=== PATIENT | female | born 2000 | race Caucasian/White ===

== ENCOUNTER 2024-10-24 00:07 | Inpatient (IN) | payer BC ==
[~2024-10-24] VITALS: Ht 167.6 cm; Wt 97.5 kg
[~2024-10-24 00:07] MED LIST: CALCIUM CARBONATE 500 MG CHEW PO PRN; LACTATED RINGER'S 1,000 ML IV SCH; MAGNESIUM HYDROXIDE/AL HYDROX 30 ML CUP PO PRN; miSOPROStoL 25 MCG TAB PV SCH
[2024-10-24 01:07] VITALS: BP 124/77
[2024-10-24 01:08] LABS: HEMATOCRIT 32.8 % (35.0-50.0); HEMOGLOBIN 11.3 g/dL (12.0-18.0); MCH 29.2 (27-36); MCHC 34.3 g/dl (30-36); MCV 85.2 fl (81-99); RBC 3.85 M/ul (4.3-5.7); RDW 13.8 (10.5-15.0)
[2024-10-24 01:17] LABS: AMPHETAMINES, URINE NEGATIVE (NEGATIVE); BARBITURATES, URINE NEGATIVE (NEGATIVE); BENZODIAZEPINE, URINE NEGATIVE (NEGATIVE); BUPRENORPHINE, URINE NEGATIVE (NEGATIVE); CANNABINOID, URINE NEGATIVE (NEGATIVE); COCAINE, URINE NEGATIVE (NEGATIVE); ECSTASY, URINE NEGATIVE (NEGATIVE); FENTANYL, URINE NEGATIVE (NEGATIVE); METHADONE, URINE NEGATIVE (NEGATIVE); OPIATES, URINE NEGATIVE (NEGATIVE); OXYCODONE, URINE NEGATIVE (NEGATIVE); PHENCYCLIDINE, URINE NEGATIVE (NEGATIVE)
[2024-10-24 01:38] LABS: ABO O; ANTIBODY SCREEN NEGATIVE; RH POSITIVE
[2024-10-24] MEDS ORDERED: OXYTOCIN/DEXTROSE 5% 20 UNITS/100 ML BAG IV SCH (08:00)
[2024-10-24] MEDS ORDERED: OXYTOCIN/0.9 % SODIUM CHLORIDE 500 ML IV SCH (09:45)
[2024-10-24] MEDS ORDERED: dexmedeTOMIDine HCl 200 MCG/2 ML VIAL ONE (15:49)
[2024-10-24] MEDS ORDERED: BUPIVACAINE HCL 0.25% 10 ML SDV INJ ONE (15:49)
[2024-10-24] MEDS ORDERED: LIDOCAINE HCL 2% 5 ML SDV ONE (15:49)
[2024-10-24] MEDS ORDERED: ROPIVACAINE 0.2% 200 ML BAG ONE (15:49)
[2024-10-24] MEDS ORDERED: SEVOFLURANE 250 ML BTL INH ONE (16:12)
[2024-10-24] MEDS ORDERED: LACTATED RINGER'S 2,000 ML IV ONE (16:45)
[2024-10-24] MEDS ORDERED: ePHEDrine sulfate 5 MG/ML SYRINGE IV PRN (16:45)
[2024-10-24] MEDS ORDERED: ROPIVACAINE 0.2% 200 ML BAG EPIDURAL SCH ×2 (16:45)
[2024-10-24] MEDS ORDERED: LACTATED RINGER'S 500 ML IV PRN (16:45)
[2024-10-24] MEDS ORDERED: ePHEDrine KIT FOR FBC IV ONE (18:52)
[2024-10-25] MEDS ORDERED: AZITHROMYCIN/DEXTROSE 500 MG/250 ML PIGGYBACK ONE (04:23)
[2024-10-25] MEDS ORDERED: CEFAZOLIN SODIUM 2 GM/20 ML SYR IV ONE (04:30)
[2024-10-25] MEDS ORDERED: AZITHROMYCIN/DEXTROSE 500 MG/250 ML PIGGYBACK IV ONE (04:30)
[2024-10-25] MEDS ORDERED: LIDOCAINE 2% W/ EPI 1:200,000 20 ML SDV ONE (04:33)
[2024-10-25] MEDS ORDERED: DEXAMETHASONE SOD PHOS 4 MG/ML VIAL ONE (04:42)
[2024-10-25] MEDS ORDERED: ondansetron HCL 4 MG/2 ML VIAL ONE (04:42)
[2024-10-25] MEDS ORDERED: OXYTOCIN 10 UNITS/ML VIAL ONE (04:42)
[2024-10-25] MEDS ORDERED: FAMOTIDINE 20 MG/ 2 ML VIAL ONE (04:42)
[2024-10-25] MEDS ORDERED: METOCLOPRAMIDE HCL 10 MG/2 ML SDV ONE (04:42)
[2024-10-25] MEDS ORDERED: ePHEDrine sulfate 50 MG/ML AMP ONE (04:45)
[2024-10-25] MEDS ORDERED: SODIUM CHLORIDE 0.9% 40 ML IV ONE (04:46)
[2024-10-25] MEDS ORDERED: Ropivacaine HCl 0.5% 30 ML VIAL ONE (04:46)
[2024-10-25] MEDS ORDERED: MORPHINE SULFATE 1 MG/ML VIAL ONE (04:48)
[2024-10-25] MEDS ORDERED: propofoL 200 MG/20 ML VIAL ONE (04:52)
[2024-10-25] MEDS ORDERED: SUCCINYLCHOLINE IN 0.9% NACL 200 MG/10 ML SYRINGE ONE (05:04)
[2024-10-25] MEDS ORDERED: LACTATED RINGER'S 1,000 ML IV ONE ×3 (05:11)
[2024-10-25] MEDS ORDERED: MIDAZOLAM HCL 2 MG/2 ML VIAL ONE (05:17)
[2024-10-25] MEDS ORDERED: LACTATED RINGER'S 1,000 ML IV SCH (06:13)
[2024-10-25] MEDS ORDERED: ondansetron HCL 4 MG/2 ML VIAL IV PRN ×3 (06:15→06:30)
[2024-10-25] MEDS ORDERED: LIDOCAINE 2% VISCOUS 6 ML SYR TOP ONE (06:15)
[2024-10-25] MEDS ORDERED: OXYCODONE HCL 5 MG TAB PO PRN (06:15)
[2024-10-25] MEDS ORDERED: OXYTOCIN/0.9 % SODIUM CHLORIDE 500 ML IV SCH (06:15)
[2024-10-25] MEDS ORDERED: bisacodyL 10 MG SUPP PR PRN (06:15)
[2024-10-25] MEDS ORDERED: PROMETHAZINE HCL 25 MG TAB PO PRN (06:15)
[2024-10-25] MEDS ORDERED: METOCLOPRAMIDE HCL 10 MG/2 ML SDV IV PRN ×3 (06:15→06:30)
[2024-10-25] MEDS ORDERED: HYDROCODONE/ACETA 5/325 TAB PO PRN (06:15)
[2024-10-25] MEDS ORDERED: PROMETHAZINE HCL 25 MG SUPP PR PRN (06:15)
[2024-10-25] MEDS ORDERED: OXYCODONE/APAP 5/325 TAB PO PRN (06:15)
[2024-10-25] MEDS ORDERED: PROCHLORPERAZINE EDISYLATE 10 MG/2 ML VIAL IV PRN ×3 (06:15→06:30)
[2024-10-25] MEDS ORDERED: MORPHINE SULFATE 4 MG/ML VIAL ONE (06:27)
[2024-10-25] MEDS ORDERED: KETOROLAC TROMETHAMINE 30 MG/ML VIAL ONE (06:27)
[2024-10-25] MEDS ORDERED: KETOROLAC TROMETHAMINE 30 MG/ML VIAL IV PRN (06:30)
[2024-10-25] MEDS ORDERED: diphenhydrAMINE HCL 25 MG CAP PO PRN (06:30)
[2024-10-25] MEDS ORDERED: NALOXONE HCL 0.4 MG SYR IV PRN ×2 (06:30)
[2024-10-25] MEDS ORDERED: IBLOOD GLUCOSE TEST STRIP 1 EA TEST VI PRN (06:30)
[2024-10-25] MEDS ORDERED: MORPHINE SULFATE 4 MG/ML VIAL IV PRN (06:30)
[2024-10-25] MEDS ORDERED: MORPHINE SULFATE 10 MG/ML VIAL IV PRN (06:30)
[2024-10-25] MEDS ORDERED: diphenhydrAMINE HCL 50 MG/ML VIAL IV PRN (06:30)
[2024-10-25] MEDS ORDERED: droPERidol 5 MG/2 ML VIAL IV PRN (06:30)
[2024-10-25] MEDS ORDERED: fentaNYL citrate 50 MCG/ML SDV IV PRN (06:30)
[2024-10-25 06:49] VITALS: BP 103/58
--- NOTE | 2024-10-25 07:23 | NUR ---
10/25/24 0723 Jessica Avina 0609 PT ARRIVED IN PACU SLEEPY AND SHIVERING. WARM BLANKETS AND JEANMARIE HUGGER PLACED. 0620 RESTING. REU. 0630 C/O ABD PAIN 02/18. TORADOL 30MG GIVEN IV. 0633 MORPHINE 4MG GIVEN IV. 0645 PT STATES "MY PAIN IS BETTER." 0700 TO ROOM 102. BED PLUGGED IN AND REPORT GIVEN TO RN. ANESTHESIA TOOK PT'S VENEERS AND RETURNED THEM TO HER .
[2024-10-25] MEDS ORDERED: KETOROLAC TROMETHAMINE 30 MG/ML VIAL IV SCH (08:00)
[2024-10-25] MEDS ORDERED: AZITHROMYCIN 500 MG in DEXTROSE 5% 250 ML IV SCH (09:00)
[2024-10-25] MEDS ORDERED: LIDOCAINE 2% (VISCOUS) HCL 15 ML UDC MT SCH (09:00)
[2024-10-25] MEDS ORDERED: SENNOSIDES/DOCUSATE 1 EA TAB PO SCH (09:00)
[2024-10-25] MEDS ORDERED: AZITHROMYCIN/DEXTROSE 500 MG/250 ML PIGGYBACK IV SCH (09:00)
[2024-10-26] MEDS ORDERED: IBUPROFEN 600 MG TAB PO SCH ×2 (02:00→08:00)
[2024-10-26 05:59] LABS: HEMATOCRIT 28.3 % (35.0-50.0); HEMOGLOBIN 9.6 g/dL (12.0-18.0); MCH 29.3 (27-36); MCHC 33.9 g/dl (30-36); MCV 86.4 fl (81-99); RBC 3.27 M/ul (4.3-5.7)
[2024-10-26] MEDS ORDERED: METOCLOPRAMIDE HCL 10 MG/2 ML SDV IV PRN (06:30)
[2024-10-26] MEDS ORDERED: PROCHLORPERAZINE EDISYLATE 10 MG/2 ML VIAL IV PRN (06:30)
[2024-10-26] MEDS ORDERED: ondansetron HCL 4 MG/2 ML VIAL IV PRN (06:30)
[2024-10-26] MEDS ORDERED: IBUPROFEN 600 MG TAB ONE (08:12)
[2024-10-26] MEDS ORDERED: SIMETHICONE 80 MG CHEW PO SCH (11:00)
== END 2024-10-27 13:55 | disposition home or self-care (01) | DRG 788 ==
LOC: FBC 00:07
PROVIDERS: ADMIT Student in an Organized Health Care Education/Training Program; ATTEND Student in an Organized Health Care Education/Training Program
PROC: 10907ZC Drainage of Amniotic Fluid, Therapeutic from Products of Conception, Via Natural or Artificial Opening (ICD-10-PCS; 2024-10-24)
PROC: 0U7C7ZZ Dilation of Cervix, Via Natural or Artificial Opening (ICD-10-PCS; 2024-10-24)
PROC: 3E0P7VZ Introduction of Hormone into Female Reproductive, Via Natural or Artificial Opening (ICD-10-PCS; 2024-10-24)
PROC: 10D00Z1 Extraction of Products of Conception, Low, Open Approach (ICD-10-PCS; principal; 2024-10-25 04:40)
DX: O48.0 Post-term pregnancy (principal); Z37.0 Single live birth; O69.81X0 Labor and delivery complicated by cord around neck, without compression, not applicable or unspecified; Z3A.40 40 weeks gestation of pregnancy; Z87.891 Personal history of nicotine dependence; O76 Abnormality in fetal heart rate and rhythm complicating labor and delivery
CPT/HCPCS: 01961; 36415; 76942; 80307; 85027; 86850; 86900; 86901; A9270; J0330; J0456; J0690; J1100; J1885; J2003; J2250; J2270; J2274; J2405; J2590; J2704; J2765; J2795; J7121